=== PATIENT | female | born 1965 | race Caucasian/White ===

== ENCOUNTER 2017-05-19 21:08 | Emergency (ER) | payer OTHER ==
[2017-05-19 21:53] LABS: Bilirubin Negative (Negative); Blood, Urine Small (Negative); Clarity TURBID (Clear); Glucose, Urine (Dipstick) Negative (Negative); Leukocyte Large (Negative); Nitrite Positive (Negative); Protein, Urine (Dipstick) 100 mg/dL (Neg-Trace); Specific Gravity, Urine 1.024 (1.002-1.036); pH, Urine 6.5 (5.0-9.0)
[2017-05-19 21:55] LABS: Bacteria/HPF 2+ HPF (None Seen); Squamous Epithelial 0-3 HPF (0-3); Yeast-AUWi Flag 345.3 (0-25.0)
[2017-05-19 22:12] LABS: Hyaline Casts/LPF 0-3 HYALINE CAST LPF (0-3 Hyaline)
[2017-05-19] MEDS ORDERED: Ibuprofen 800 MG TAB ONE (22:23)
[2017-05-19 22:44] LABS: Band 5 % (5-11); Eosinophils 1 % (0-10); Hemoglobin 8.5 g/dL (12.0-16.0); Lymphocytes 25 % (21-51); MDiff Complete? YES; Mean Corpuscular HGB CONC 31.5 g/dL (32.0-36.0); Mean Corpuscular Volume 76.3 fl (81.0-99.0); Monocytes 10 % (0-10); Neutrophil 58 % (42-75); PLT Morphology Comment Appears Increased; Platelet Count 537 thou/uL (130-400); RBC Distribution Width 18.5 % (11.5-14.5); Red Blood Cell (RBC) Count 3.53 mill/uL (4.20-5.40); White Blood Cell (WBC) Count 11.9 thou/uL (4.8-10.8)
[2017-05-19 23:02] LABS: Anion Gap 10 mmol/L (10-20); BUN (Urea Nitrogen) 10 mg/dL (9.8-20.1); Calc. Creatinine Clearance 0 mL/min (70-130); Calcium 8.3 mg/dL (7.8-10.44); Carbon Dioxide 24 mmol/L (22-29); Chloride 110 mmol/L (98-107); Estimated GFR-MDRD 75; Glucose 98 mg/dL (70-105); Potassium 3.7 mmol/L (3.5-5.1); Sodium 140 mmol/L (136-145)
== END 2017-05-20 00:13 | disposition home or self-care (01) ==
LOC: ERS 21:08
DX: N12 Tubulo-interstitial nephritis, not specified as acute or chronic (principal); Z79.899 Other long term (current) drug therapy
CPT/HCPCS: 36415; 80048; 81003; 81015; 85025; 87077; 87086; 87186; 96361; 96365; J0696

== ENCOUNTER 2017-05-31 10:44 | Emergency (ER) | payer OTHER ==
--- NOTE | 2017-05-31 12:26 | RAD ---
RIGHT FOREARM TWO VIEWS: History: Fall with injury to right forearm. FINDINGS: No evidence of fracture. IMPRESSION: No acute finding. POS: [facility]
--- NOTE | 2017-05-31 13:24 | RAD ---
LEFT HAND THREE VIEWS: History: Left hand injury. FINDINGS: Joint space narrowing and lateral subluxation are present at the first carpometacarpal joint. Less pr ominent osteoarthritic change of the distal interphalangeal joints are apparent. Ulnar styloid is int act. No acute fracture, dislocation, or aggressive osseous erosions. IMPRESSION: Osteoarthritis most pronounced at first carpometacarpal joint. POS: [facility]
== END 2017-05-31 14:32 | disposition home or self-care (01) ==
LOC: ERS 10:44
DX: S50.11XA Contusion of right forearm, initial encounter (principal); M19.90 Unspecified osteoarthritis, unspecified site; K50.90 Crohn's disease, unspecified, without complications; W20.8XXA Other cause of strike by thrown, projected or falling object, initial encounter